=== PATIENT | male | born 1955 | race Caucasian/White ===

== ENCOUNTER 2022-04-25 15:23 | Observation (INO) | payer MEDICARE, OTHER ==
[~2022-04-25] VITALS: Ht 170.2 cm; Wt 66.0 kg
[2022-04-25 19:47] LABS: HEMOGLOBIN 10.3 gm/dl (14.0-17.5); RED BLOOD COUNT 3.51 M/UL (4.20-5.50); WHITE BLOOD COUNT 6.9 K/UL (4.5-11.0)
[2022-04-26 07:27] LABS: HEMOGLOBIN 9.4 gm/dl (14.0-17.5); RED BLOOD COUNT 3.25 M/UL (4.20-5.50)
[2022-04-26] MEDS ORDERED: AMITRIPTYLINE H25 MG PO (16:35)
[2022-04-26] MEDS ORDERED: ASPIRIN EC81 MG PO (16:36)
[2022-04-26] MEDS ORDERED: ELIQUIS5 MG PO (16:36)
[2022-04-26] MEDS ORDERED: CETIRIZINE HCL10 MG PO (16:37)
[2022-04-26] MEDS ORDERED: ATORVASTATIN CA40 MG PO (16:37)
[2022-04-26] MEDS ORDERED: DOCUSATE SODIU100 MG PO (16:37)
[2022-04-26] MEDS ORDERED: FERROUS SULFAT325 MG PO (16:38)
[2022-04-26] MEDS ORDERED: HYDRALAZINE HCL25 MG PO (16:39)
[2022-04-26] MEDS ORDERED: MELATONIN3 MG PO (16:39)
[2022-04-26] MEDS ORDERED: METOPROLOL SUCC50 MG PO (16:40)
[2022-04-26] MEDS ORDERED: NITROGLYCERIN0.4 MG SL (16:40)
[2022-04-26] MEDS ORDERED: BUMETANIDE2 MG PO (16:41)
[2022-04-26] MEDS ORDERED: OMEPRAZOLE20 M1 PO (16:41)
[2022-04-26] MEDS ORDERED: HYDROXYZINE PAM25 MG PO (16:42)
[2022-04-26] MEDS ORDERED: ISOSORBIDE MONO30 MG PO (16:42)
[2022-04-26] MEDS ORDERED: CYANOCOBAL1000 MCG/1 IM (16:44)
[2022-04-27 02:56] LABS: HEMOGLOBIN 10.4 gm/dl (14.0-17.5); RED BLOOD COUNT 3.56 M/UL (4.20-5.50)
[2022-04-27 03:01] LABS: WHITE BLOOD COUNT 8.1 K/UL (4.5-11.0)
== END 2022-04-27 12:35 | disposition home or self-care (01) ==
LOC: ER1 15:23 → M/S 23:14 → CDU 23:14 → M/S 04-26 00:53
PROVIDERS: Internal Medicine; Internal Medicine Nephrology; Student in an Organized Health Care Education/Training Program; ADMIT Internal Medicine
DX: N17.9 Acute kidney failure, unspecified (principal); I13.0 Hypertensive heart and chronic kidney disease with heart failure and stage 1 through stage 4 chronic kidney disease, or unspecified chronic kidney disease; N18.30 Chronic kidney disease, stage 3 unspecified; I50.22 Chronic systolic (congestive) heart failure; D63.1 Anemia in chronic kidney disease; I25.10 Atherosclerotic heart disease of native coronary artery without angina pectoris; E78.5 Hyperlipidemia, unspecified; Z95.1 Presence of aortocoronary bypass graft; Z79.890 Hormone replacement therapy; Z79.82 Long term (current) use of aspirin; Z79.01 Long term (current) use of anticoagulants; Z79.899 Other long term (current) drug therapy
CPT/HCPCS: 80048; 80053; 81001; 82550; 82553; 82607; 82746; 83540; 83550; 83735; 84484; 85025; 93005; 99284; G0378; J1644; J7030